=== PATIENT | female | born 1945 | race Caucasian/White ===

== ENCOUNTER 2018-01-01 17:44 | Emergency (ER) | payer MEDICARE ==
[~2018-01-01] VITALS: Ht 157.5 cm; Wt 94.0 kg
[2018-01-01] MEDS ORDERED: FAMOTIDINE 20 MG/2 ML IVP ONE (18:30)
[2018-01-01] MEDS ORDERED: SODIUM CHLORIDE 0.9% 1,000ML IVBOLUS ONE (18:30)
[2018-01-01] MEDS ORDERED: SODIUM CHLORIDE FLUSH 10ML SYR IVF ONE (18:30)
[2018-01-01] MEDS ORDERED: ONDANSETRON ODT 4 MG PO ONE (18:30)
[2018-01-01 18:57] LABS: MEAN CORPUSCULAR HEMOGLOBIN 33.5 pg (27.0-34.8); MEAN CORPUSCULAR HGB CONC 35.2 g/dL (32.4-35.8); MEAN CORPUSCULAR VOLUME 95.3 fL (80-100); RED BLOOD COUNT 2.99 x10^6/uL (3.82-5.3); RED CELL DISTRIBUTION WIDTH 15.2 % (9.6-15.2)
[2018-01-01 19:00] LABS: ALANINE AMINOTRANSFERASE 23 U/L (12-78); ALBUMIN 3.2 g/dL (3.4-5.0); ANION GAP 8 mmol/L (5-15); CALCIUM 9.2 mg/dL (8.5-10.1); CHLORIDE 108 mmol/L (98-107)
[2018-01-01 19:02] LABS: ALKALINE PHOSPHATASE 95 U/L (45-117); BILIRUBIN,TOTAL 2.9 mg/dL (0.2-1.0); TOTAL PROTEIN 6.6 g/dL (6.4-8.2)
[2018-01-01 19:08] LABS: BASOPHILS # (AUTO) 0.03 x10^3/uL (0-0.1); BASOPHILS % (AUTO) 1 % (0-1); EOSINOPHILS # (AUTO) 0.14 x10^3/uL (0-0.4); EOSINOPHILS % (AUTO) 3 % (1-7); LYMPHOCYTES # (AUTO) 1.08 x10^3/uL (1-3.4); LYMPHOCYTES % (AUTO) 23 % (22-44); MD SCAN; MEAN PLATELET VOLUME 8.2 fL (7.4-10.4); MONOCYTES # (AUTO) 0.42 x10^3/uL (0.2-0.8); MONOCYTES % (AUTO) 9 % (2-9); NEUTROPHILS # (AUTO) 3.11 x10^3/uL (1.8-6.8); NEUTROPHILS % (AUTO) 65 % (42-75); PLATELET COUNT 78 x10^3/uL (130-400)
[2018-01-01] MEDS ORDERED: ONDANSETRON ODT 4 MG ONE (19:29)
[2018-01-01] MEDS ORDERED: FAMOTIDINE 20 MG/2 ML ONE (19:30)
[2018-01-01] MEDS ORDERED: ASPI-496 PO (20:02)
[2018-01-01] MEDS ORDERED: CLOP75TA52 PO (20:02)
[2018-01-01] MEDS ORDERED: ATOR10TA PO (20:02)
[2018-01-01] MEDS ORDERED: SITA50TA PO (20:02)
[2018-01-01] MEDS ORDERED: LEVO100T5 PO (20:02)
[2018-01-01] MEDS ORDERED: LOSA25TA5 PO (20:02)
[2018-01-01] MEDS ORDERED: FURO20TA3 PO (20:02)
[2018-01-01] MEDS ORDERED: NADO20TA PO (20:02)
[2018-01-01 20:08] VITALS: BP 134/43
[2018-01-01 21:38] LABS: CULTURE INDICATED? YES; MICROSCOPIC INDICATED
[2018-01-01] MEDS ORDERED: CEFTRIAXONE PMX 1GM/50ML 50 ML IVPB ONE (22:00)
[2018-01-01] MEDS ORDERED: CEFTRIAXONE PMX 1GM/50ML 50 ML ONE (22:09)
== END 2018-01-01 23:14 | disposition home or self-care (01) ==
LOC: ED 19:21
DX: E86.0 Dehydration (principal); N30.91 Cystitis, unspecified with hematuria; I10 Essential (primary) hypertension; E11.9 Type 2 diabetes mellitus without complications; E05.90 Thyrotoxicosis, unspecified without thyrotoxic crisis or storm; E78.00 Pure hypercholesterolemia, unspecified; E78.5 Hyperlipidemia, unspecified
CPT/HCPCS: 36415; 74021; 80053; 81001; 83690; 85025; 87077; 87086; 87186; 96361; 96365; 96375; 99285; J0696; J7030; Q0162; S0028